=== PATIENT | male | born 1960 | race Caucasian/White ===

== ENCOUNTER 2017-09-28 12:06 | Inpatient (IN) | payer MEDICAID ==
[~2017-09-28] VITALS: Ht 172.7 cm; Wt 60.0 kg
[2017-09-28] MEDS ORDERED: SODIUM CHLORIDE 0.9% 2,000 ML IV ONE (12:45)
[2017-09-28] MEDS ORDERED: FOLI1 PO (12:45)
[2017-09-28] MEDS ORDERED: OMEP20 PO (12:45)
[2017-09-28] MEDS ORDERED: LISI-662 PO (12:45)
[2017-09-28 13:17] LABS: BASOPHILS % (AUTO) 0.1 % (0.0-2.0); EOSINOPHILS % (AUTO) 0 % (1.0-6.0); HEMATOCRIT 39.2 % (41-53); HEMOGLOBIN 13.5 g/dL (13.5-17.5); LYMPHOCYTES # (AUTO) 0.5 K/uL (1.0-4.8); MEAN CORPUSCULAR HEMOGLOBIN 32.6 pg (26.0-34.0); MEAN CORPUSCULAR HGB CONC 34.5 G/dL (31.0-37.0); MEAN CORPUSCULAR VOLUME 95 fL (80-100); MONOCYTES # (AUTO) 0.8 K/uL (0.1-1.0); MONOCYTES % (AUTO) 9.6 % (2.0-9.0); NEUTROPHILS % (AUTO) 84.3 % (40.0-70.0); PLATELET COUNT (AUTO) 124 K/uL (150-450); RED BLOOD CELL COUNT(AUTO) 4.14 MIL/uL (4.50-5.90); RED CELL DISTRIBUTION WIDTH 13.7 % (11.5-14.5)
[2017-09-28] MEDS ORDERED: MAGNESIUM SULFATE 2 GM in DEXTROSE 5%-WATER 50 ML IV ONE (13:30)
[2017-09-28 13:32] LABS: B-TYPE NATRIURETIC PEPTIDE 317 pg/mL (0-100)
[2017-09-28 13:35] LABS: ALBUMIN 3.1 g/dL (3.4-5.0); ALKALINE PHOSPHATASE 78 U/L (46-116); BILIRUBIN,TOTAL 1.3 mg/dL (0.1-1.0); CALCIUM, TOTAL 8.5 mg/dL (8.8-10.5); CHLORIDE 68 mmol/L (98-107); CREATININE 3.95 mg/dL (0.60-1.30); GLOMERULAR FILTR. RATE CALC 16 mL/min (>60); GLUCOSE,RANDOM 128 mg/dL (70-110); LIPASE 438 U/L (73-393); SODIUM SERUM 137 mmol/L (136-145); TOTAL PROTEIN, SERUM 6.7 g/dL (6.4-8.2); UREA NITROGEN, BLOOD 25 mg/dL (7-18)
[2017-09-28 14:01] LABS: POTASSIUM 2.2 mmol/L (3.5-5.1)
[2017-09-28] MEDS ORDERED: POTASSIUM CHLORIDE 20 MEQ ER TABLET PO ONE ×2 (14:15→19:30)
[2017-09-28 14:17] LABS: ANION GAP 9 mmol/L (8-16); CARBON DIOXIDE 60 mmol/L (22-29)
[2017-09-28 14:20] LABS: ALANINE AMINOTRANSFERASE 54 U/L (12-78); ASPARTATE AMINOTRANSFERASE 175 U/L (15-37)
[2017-09-28] MEDS ORDERED: ACETAMINOPHEN 325 MG TABLET PO PRN (14:30)
[2017-09-28] MEDS ORDERED: 0.9% SODIUM CHLORIDE 10 ML SYRINGE IVP PRN (14:30)
[2017-09-28] MEDS ORDERED: ONDANSETRON HCL 4 MG/2 ML VIAL IVP PRN ×3 (14:30→19:30)
[2017-09-28] MEDS ORDERED: SODIUM BICARBONATE 150 MEQ in SODIUM CHLORIDE 0.9% 1,000 ML IV ONE (14:45)
[2017-09-28 14:57] LABS: ABG A-A DIFF O2 60.5 mmHg (10-20.0); ABG BASE EXCESS 42.1 mmol/L (-2.0-3.0); ABG HCO3 64.3 mmol/L (22.0-26.0); ABG METHEMOGLOBIN 0.2 % (0.0-1.5); ABG OXYGEN CONTENT 17.5 mL/dL (15.0-23.0); ABG OXYGEN SATURATION 96.9 % (95.0-98.0); ABG OXYHEMOGLOBIN 93.8 % (94.0-100.0); ABG PCO2 63 mmHg (35-45); ABG TOTAL HEMOGLOBIN 13.2 G/dL (12.0-18.0); PO2, ARTERIAL BG 93.6 mmHg (84.0-92.0); SOURCE, BLOOD GAS ARTERIAL; TEMPERATURE, FAHRENHEIT, BG 98.6 FAHREN (96.0-98.6)
[2017-09-28 14:58] LABS: ABG PH 7.618 (7.35-7.450); O2 DEVICE,BLOOD GAS CANNULA (ROOM AIR); SITE, BLOOD GAS RT RADIAL
[2017-09-28] MEDS ORDERED: LORazepam 2 MG/ML VIAL ONE (15:22)
[2017-09-28] MEDS ORDERED: LORazepam 2 MG/ML VIAL IVP ONE (15:30)
[2017-09-28] MEDS ORDERED: SODIUM CHLORIDE 0.9% 1,000 ML IV ONE (15:30)
[2017-09-28 15:52] LABS: GLUCOSE,POINT OF CARE 148 MG/DL (70-110)
[2017-09-28 16:04] LABS: AMPHET/METH SCREEN,URINE NEGATIVE (NEGATIVE); BARBITURATE SCREEN, URINE NEGATIVE (NEGATIVE); BENZODIAZEPINES SCREEN,URINE NEGATIVE (NEGATIVE); CANNABINOID SCREEN,URINE NEGATIVE (NEGATIVE); COCAINE SCREEN,URINE NEGATIVE (NEGATIVE); METHADONE SCREEN, URINE NEGATIVE (NEGATIVE); OPIATE SCREEN,URINE NEGATIVE (NEGATIVE); PHENCYCLIDINE SCREEN,URINE NEGATIVE (NEGATIVE)
[2017-09-28 16:20] VITALS: BP 83/52
[2017-09-28 16:21] LABS: BILIRUBIN,URINE NEGATIVE (NEGATIVE); GLUCOSE, URINE (UA) NEGATIVE (NEGATIVE); KETONES,URINE NEGATIVE (NEGATIVE); LEUKOCYTE ESTERASE ,URINE NEGATIVE (NEGATIVE); NITRATE,URINE NEGATIVE (NEGATIVE); PH,URINE 8.5 (5.0-8.0); PROTEIN,URINE SEE CONFIRM (NEGATIVE); UROBILINOGEN,URINE 0.2 mg/dL (<=1.0)
[2017-09-28 16:42] LABS: APPEARANCE,URINE CLEAR (CLEAR); OCCULT BLOOD,URINE SMALL (NEGATIVE)
[2017-09-28 16:43] LABS: BACTERIA,URINE None Seen /HPF (None Seen); SULFOSALICYLIC ACID,URINE Trace (Negative); WBC,URINE None Seen /HPF (0-5)
[2017-09-28] MEDS ORDERED: MVI, ADULT NO.1 WITH VIT K 10 ML in SODIUM CHLORIDE 0.9% 1,000 ML IV ONE ×2 (17:00)
[2017-09-28] MEDS ORDERED: ALBUMIN HUMAN 25%-25GM/100ML 100 ML IV PRN (17:00)
[2017-09-28] MEDS ORDERED: NOREPINEPHRINE 4 MG/D5%-WATER 250 ML IV PRN (17:04)
[2017-09-28] MEDS ORDERED: SODIUM CHLORIDE 0.9% 250 ML IV ONE (17:16)
[2017-09-28] MEDS: LevETIRAcetam 500 MG in DEXTROSE 5%-WATER 100 ML IV SCH (17:26)
[2017-09-28] MEDS ORDERED: DEXTROSE 5%-WATER 1,000 ML IV SCH (19:00)
[2017-09-28] MEDS ORDERED: PANTOPRAZOLE SODIUM 40 MG/VIAL IVP SCH (19:30)
[2017-09-28 20:00] VITALS: BP 121/96
[2017-09-28] MEDS: ChlordiazePOXIDE HCL 10 MG CAPSULE PO SCH (20:17)
[2017-09-28] MEDS: PANTOPRAZOLE SODIUM 40 MG/VIAL IVP SCH (20:17)
[2017-09-28] MEDS: FOLIC ACID 1 MG TABLET PO SCH (20:17)
[2017-09-28] MEDS: LORazepam 2 MG/ML VIAL IVP PRN (20:17)
[2017-09-29] VITALS (7 sets, daily range): BP systolic 88–134; BP diastolic 50–92
[2017-09-29] MEDS ORDERED: HEPARIN SODIUM,PORCINE 5,000 UNITS/ML VIAL SQ SCH
[2017-09-29] MEDS: ZOLPIDEM TARTRATE 5 MG TABLET PO PRN ×2 (00:17→22:08)
[2017-09-29] MEDS: ChlordiazePOXIDE HCL 10 MG CAPSULE PO SCH ×4 (00:17→18:17)
[2017-09-29] MEDS: HEPARIN SODIUM,PORCINE 5,000 UNITS/ML VIAL SQ SCH ×3 (00:18→15:06)
[2017-09-29] MEDS: LORazepam 2 MG/ML VIAL IVP PRN ×4 (01:58→21:52)
[2017-09-29] MEDS: POTASSIUM CHLORIDE 10 MEQ in SODIUM CHLORIDE 0.9% 1,000 ML IV SCH ×4 (01:59→22:08)
[2017-09-29] MEDS ORDERED: SODIUM CHLORIDE 0.9% 1,000 ML IV SCH (02:00)
[2017-09-29 05:00] LABS: BASOPHILS % (AUTO) 0.1 % (0.0-2.0); EOSINOPHILS % (AUTO) 0 % (1.0-6.0); HEMOGLOBIN 11.4 g/dL (13.5-17.5); LYMPHOCYTES # (AUTO) 0.9 K/uL (1.0-4.8); LYMPHOCYTES % (AUTO) 10.9 % (22.0-44.0); MEAN CORPUSCULAR HEMOGLOBIN 32.9 pg (26.0-34.0); MEAN CORPUSCULAR HGB CONC 34.6 G/dL (31.0-37.0); MEAN CORPUSCULAR VOLUME 95 fL (80-100); MONOCYTES # (AUTO) 0.7 K/uL (0.1-1.0); MONOCYTES % (AUTO) 8.1 % (2.0-9.0); NEUTROPHILS # (AUTO) 6.8 K/uL (1.8-7.7); NEUTROPHILS % (AUTO) 80.9 % (40.0-70.0); PLATELET COUNT (AUTO) 81 K/uL (150-450); RED BLOOD CELL COUNT(AUTO) 3.48 MIL/uL (4.50-5.90); RED CELL DISTRIBUTION WIDTH 13.9 % (11.5-14.5)
[2017-09-29 05:10] LABS: CALCIUM, TOTAL 7.3 mg/dL (8.8-10.5); CREATININE 2.97 mg/dL (0.60-1.30)
[2017-09-29] MEDS: LevETIRAcetam 500 MG in DEXTROSE 5%-WATER 100 ML IV SCH ×2 (06:27→18:17)
[2017-09-29 07:07] LABS: POTASSIUM 2.8 mmol/L (3.5-5.1)
[2017-09-29] MEDS: POTASSIUM CHL 10 MEQ/WATER 50 ML IV SCH ×3 (08:14→09:57)
[2017-09-29] MEDS: PANTOPRAZOLE SODIUM 40 MG/VIAL IVP SCH ×2 (09:08→21:00)
[2017-09-29] MEDS: FOLIC ACID 1 MG TABLET PO SCH (09:09)
[2017-09-29 10:29] LABS: ABG A-A DIFF O2 32.4 mmHg (10-20.0); ABG BASE EXCESS 25.1 mmol/L (-2.0-3.0); ABG CARBOXYHEMOGLOBIN 1.5 % (0.0-1.5); ABG HCO3 46.1 mmol/L (22.0-26.0); ABG METHEMOGLOBIN 0.1 % (0.0-1.5); ABG OXYGEN CONTENT 15.5 mL/dL (15.0-23.0); ABG OXYHEMOGLOBIN 95.4 % (94.0-100.0); ABG PCO2 65 mmHg (35-45); ABG PH 7.492 (7.35-7.450); ABG TOTAL HEMOGLOBIN 11.5 G/dL (12.0-18.0); PO2, ARTERIAL BG 91.1 mmHg (84.0-92.0); SOURCE, BLOOD GAS ARTERIAL
[2017-09-29 10:30] LABS: O2 DEVICE,BLOOD GAS CANNULA (ROOM AIR); SITE, BLOOD GAS LFT RADIAL
[2017-09-29] MEDS ORDERED: POTASSIUM CHLORIDE 20 MEQ ER TABLET PO ONE ×3 (11:00→15:00)
[2017-09-29] MEDS ORDERED: VANCOMYCIN HCL 750 MG in DEXTROSE 5%-WATER 250 ML IV ONE (15:00)
[2017-09-29] MEDS ORDERED: SODIUM CHLORIDE 0.9% 250 ML IV ONE (18:11)
[2017-09-29 19:33] LABS: CALCIUM, TOTAL 7.7 mg/dL (8.8-10.5); CREATININE 2.25 mg/dL (0.60-1.30); POTASSIUM 3.2 mmol/L (3.5-5.1)
[2017-09-30] VITALS (7 sets, daily range): BP systolic 119–147; BP diastolic 55–83
[2017-09-30] MEDS: HEPARIN SODIUM,PORCINE 5,000 UNITS/ML VIAL SQ SCH ×3 (00:14→09:31)
[2017-09-30] MEDS: ChlordiazePOXIDE HCL 10 MG CAPSULE PO SCH ×4 (00:14→18:54)
[2017-09-30] MEDS: LORazepam 2 MG/ML VIAL IVP PRN ×5 (02:39→20:58)
[2017-09-30] MEDS: LevETIRAcetam 500 MG in DEXTROSE 5%-WATER 100 ML IV SCH ×2 (05:26→18:54)
[2017-09-30] MEDS: POTASSIUM CHLORIDE 10 MEQ in SODIUM CHLORIDE 0.9% 1,000 ML IV SCH ×2 (05:27→14:21)
[2017-09-30 06:49] LABS: BASOPHILS % (AUTO) 0.1 % (0.0-2.0); HEMATOCRIT 30.5 % (41-53); HEMOGLOBIN 10.5 g/dL (13.5-17.5); LYMPHOCYTES # (AUTO) 1.2 K/uL (1.0-4.8); LYMPHOCYTES % (AUTO) 15.6 % (22.0-44.0); MEAN CORPUSCULAR HEMOGLOBIN 33.1 pg (26.0-34.0); MEAN CORPUSCULAR HGB CONC 34.3 G/dL (31.0-37.0); MEAN CORPUSCULAR VOLUME 96 fL (80-100); MONOCYTES % (AUTO) 13.4 % (2.0-9.0); NEUTROPHILS # (AUTO) 5.3 K/uL (1.8-7.7); NEUTROPHILS % (AUTO) 69.9 % (40.0-70.0); PLATELET COUNT (AUTO) 70 K/uL (150-450); RED BLOOD CELL COUNT(AUTO) 3.17 MIL/uL (4.50-5.90); RED CELL DISTRIBUTION WIDTH 13.8 % (11.5-14.5)
[2017-09-30 07:17] LABS: CREATININE 1.82 mg/dL (0.60-1.30); POTASSIUM 3.3 mmol/L (3.5-5.1)
[2017-09-30] MEDS ORDERED: POTASSIUM CHLORIDE 20 MEQ ER TABLET PO ONE (08:30)
[2017-09-30] MEDS: FOLIC ACID 1 MG TABLET PO SCH (09:31)
[2017-09-30] MEDS: MULTIVITAMINS WITH MINERALS, THERAPEUTIC TABLET PO SCH (09:31)
[2017-09-30] MEDS: PANTOPRAZOLE SODIUM 40 MG/VIAL IVP SCH ×2 (09:31→20:10)
[2017-09-30] MEDS ORDERED: VANCOMYCIN HCL 500 MG in DEXTROSE 5%-WATER 100 ML IV SCH (12:00)
[2017-09-30 14:06] LABS: MAGNESIUM 1.8 mg/dL (1.80-2.40); POTASSIUM 3.4 mmol/L (3.5-5.1)
[2017-09-30] MEDS: METOPROLOL TARTRATE 25 MG TABLET PO SCH (20:09)
[2017-10-01] MEDS: POTASSIUM CHLORIDE 10 MEQ in SODIUM CHLORIDE 0.9% 1,000 ML IV SCH ×2 (00:04→09:09)
[2017-10-01] MEDS: LORazepam 2 MG/ML VIAL IVP PRN ×2 (01:40→17:14)
[2017-10-01 04:45] VITALS: BP 141/90
[2017-10-01] MEDS: LevETIRAcetam 500 MG in DEXTROSE 5%-WATER 100 ML IV SCH ×2 (05:29→17:19)
[2017-10-01 06:55] LABS: CALCIUM, TOTAL 8.9 mg/dL (8.8-10.5); CREATININE 1.36 mg/dL (0.60-1.30); MAGNESIUM 1.4 mg/dL (1.80-2.40); POTASSIUM 4.8 mmol/L (3.5-5.1); VANCOMYCIN,RANDOM 5.4 mcg/mL (25.0-50.0)
[2017-10-01 07:30] VITALS: BP 138/86
[2017-10-01] MEDS ORDERED: MAGNESIUM SULFATE 4 GM/WATER 100 ML IV PRN (07:45)
[2017-10-01] MEDS ORDERED: MAGNESIUM OXIDE 400 MG TABLET PO PRN (07:45)
[2017-10-01] MEDS ORDERED: MAGNESIUM SULFATE 2 GM in DEXTROSE 5%-WATER 50 ML IV PRN (07:45)
[2017-10-01] MEDS ORDERED: VANCOMYCIN HCL 750 MG in DEXTROSE 5%-WATER 250 ML IV SCH (08:00)
[2017-10-01 08:29] LABS: ALBUMIN 2.8 g/dL (3.4-5.0)
[2017-10-01] MEDS ORDERED: SODIUM CHLORIDE 0.9% 250 ML IV ONE (08:44)
[2017-10-01] MEDS: PANTOPRAZOLE SODIUM 40 MG/VIAL IVP SCH ×2 (09:07→20:40)
[2017-10-01] MEDS: MULTIVITAMINS WITH MINERALS, THERAPEUTIC TABLET PO SCH (09:07)
[2017-10-01] MEDS: FOLIC ACID 1 MG TABLET PO SCH (09:08)
[2017-10-01] MEDS: METOPROLOL TARTRATE 25 MG TABLET PO SCH ×2 (09:08→20:40)
[2017-10-01 10:55] VITALS: BP 150/78
[2017-10-01 15:05] VITALS: BP 144/81
[2017-10-01 19:22] VITALS: BP 142/76
[2017-10-01] MEDS: VANCOMYCIN HCL 500 MG in DEXTROSE 5%-WATER 100 ML IV SCH (20:51)
[2017-10-01] MEDS ORDERED: MAGNESIUM SULFATE 3 GM in DEXTROSE 5%-WATER 100 ML IV ONE (21:45)
[2017-10-01 23:26] VITALS: BP 147/89
[2017-10-02] MEDS: LORazepam 2 MG/ML VIAL IVP PRN ×2 (00:27→03:08)
[2017-10-02 04:08] VITALS: BP 145/87
[2017-10-02] MEDS: LevETIRAcetam 500 MG in DEXTROSE 5%-WATER 100 ML IV SCH ×2 (05:33→17:35)
[2017-10-02] MEDS ORDERED: SODIUM CHLORIDE 0.9% 50 ML ONE (05:39)
[2017-10-02 06:07] LABS: CALCIUM, TOTAL 9.2 mg/dL (8.8-10.5); CREATININE 1.37 mg/dL (0.60-1.30); MAGNESIUM 2.4 mg/dL (1.80-2.40); VANCOMYCIN,RANDOM 12.1 mcg/mL (25.0-50.0)
[2017-10-02 07:19] VITALS: BP 161/75
[2017-10-02] MEDS: FOLIC ACID 1 MG TABLET PO SCH (08:16)
[2017-10-02] MEDS: MULTIVITAMINS WITH MINERALS, THERAPEUTIC TABLET PO SCH (08:16)
[2017-10-02] MEDS: METOPROLOL TARTRATE 25 MG TABLET PO SCH ×2 (08:17→20:26)
[2017-10-02] MEDS: PANTOPRAZOLE SODIUM 40 MG/VIAL IVP SCH ×2 (08:26→20:26)
[2017-10-02] MEDS: VANCOMYCIN HCL 500 MG in DEXTROSE 5%-WATER 100 ML IV SCH (08:55)
[2017-10-02 11:01] VITALS: BP 124/72
[2017-10-02] MEDS ORDERED: VANCOMYCIN HCL 500 MG in DEXTROSE 5%-WATER 100 ML IV SCH (15:00)
[2017-10-02 15:14] VITALS: BP 118/72
[2017-10-02] MEDS: ChlordiazePOXIDE HCL 25 MG CAPSULE PO SCH ×2 (17:35→23:43)
[2017-10-02 19:30] VITALS: BP 130/68
[2017-10-02] MEDS: ACETAMINOPHEN 325 MG TABLET PO PRN (23:45)
[2017-10-02 23:48] VITALS: BP 122/69
[2017-10-03] VITALS (7 sets, daily range): BP systolic 95–111; BP diastolic 50–72
[2017-10-03] MEDS: LevETIRAcetam 500 MG in DEXTROSE 5%-WATER 100 ML IV SCH ×2 (06:14→17:25)
[2017-10-03] MEDS: ChlordiazePOXIDE HCL 25 MG CAPSULE PO SCH ×4 (06:14→23:49)
[2017-10-03 06:34] LABS: CALCIUM, TOTAL 8.7 mg/dL (8.8-10.5); CREATININE 1.61 mg/dL (0.60-1.30); POTASSIUM 4.4 mmol/L (3.5-5.1)
[2017-10-03 08:15] LABS: MAGNESIUM 1.5 mg/dL (1.80-2.40)
[2017-10-03] MEDS: MULTIVITAMINS WITH MINERALS, THERAPEUTIC TABLET PO SCH (08:16)
[2017-10-03] MEDS: METOPROLOL TARTRATE 25 MG TABLET PO SCH ×2 (08:16→20:25)
[2017-10-03] MEDS: FOLIC ACID 1 MG TABLET PO SCH (08:16)
[2017-10-03] MEDS: PANTOPRAZOLE SODIUM 40 MG/VIAL IVP SCH ×2 (08:16→20:24)
[2017-10-03] MEDS ORDERED: MAGNESIUM SULFATE 1 GM in DEXTROSE 5%-WATER 50 ML IV ONE (09:45)
[2017-10-03] MEDS: ACETAMINOPHEN 325 MG TABLET PO PRN (20:24)
[2017-10-04 04:28] VITALS: BP 107/56
[2017-10-04] MEDS ORDERED: SODIUM CHLORIDE 0.9% 250 ML IV ONE (06:14)
[2017-10-04] MEDS: ChlordiazePOXIDE HCL 25 MG CAPSULE PO SCH ×2 (06:18→12:42)
[2017-10-04] MEDS: LevETIRAcetam 500 MG in DEXTROSE 5%-WATER 100 ML IV SCH (06:18)
[2017-10-04 07:23] LABS: CALCIUM, TOTAL 8.4 mg/dL (8.8-10.5); CREATININE 1.55 mg/dL (0.60-1.30); MAGNESIUM 1.8 mg/dL (1.80-2.40); POTASSIUM 4.5 mmol/L (3.5-5.1)
[2017-10-04 07:50] VITALS: BP 95/55
[2017-10-04] MEDS: FOLIC ACID 1 MG TABLET PO SCH (08:43)
[2017-10-04] MEDS: MULTIVITAMINS WITH MINERALS, THERAPEUTIC TABLET PO SCH (08:43)
[2017-10-04] MEDS: PANTOPRAZOLE SODIUM 40 MG/VIAL IVP SCH (08:44)
[2017-10-04] MEDS: METOPROLOL TARTRATE 25 MG TABLET PO SCH (09:00)
[2017-10-04 17:10] VITALS: BP 108/72
== END 2017-10-04 17:45 | disposition home or self-care (01) | DRG 812 ==
LOC: EMS 12:06 → ICU 14:49 → 5S 09-29 17:15 → 6N 10-03 18:10
PROVIDERS: ADMIT Internal Medicine; ATTEND Internal Medicine
DX: T47.1X1A Poisoning by other antacids and anti-gastric-secretion drugs, accidental (unintentional), initial encounter (principal); N17.0 Acute kidney failure with tubular necrosis; G93.41 Metabolic encephalopathy; E87.4 Mixed disorder of acid-base balance; I95.9 Hypotension, unspecified; D69.6 Thrombocytopenia, unspecified; E83.42 Hypomagnesemia; E86.9 Volume depletion, unspecified; B95.8 Unspecified staphylococcus as the cause of diseases classified elsewhere; E87.6 Hypokalemia; F10.229 Alcohol dependence with intoxication, unspecified; F17.210 Nicotine dependence, cigarettes, uncomplicated; I10 Essential (primary) hypertension; F10.239 Alcohol dependence with withdrawal, unspecified; D64.9 Anemia, unspecified; K21.9 Gastro-esophageal reflux disease without esophagitis; Z79.899 Other long term (current) drug therapy; Y90.9 Presence of alcohol in blood, level not specified; Y92.89 Other specified places as the place of occurrence of the external cause
CPT/HCPCS: 51702; 70450; 72125; 76770; 80320; 82693; 82805; 82962; 83605; 83735; 84132; 84145; 86160; 87040; 87081; 87205; 93005; 93306; 96361; 96365; 96367; 96375; 97110; 97116; 97162; 97166; 97530; 99291; C9113; G0480; J0712; J1644; J2060; J3370; J3475; J3480; J3490; J7030; J7050; J7060

== ENCOUNTER 2018-12-05 09:06 | Emergency (ER) | payer MEDICAID ==
[~2018-12-05] VITALS: Ht 185.4 cm; Wt 65.9 kg
[~2018-12-05 09:06] MED LIST: FOLI1 PO; LISI-662 PO; OMEP20 PO
[2018-12-05] MEDS ORDERED: VANCOMYCIN HCL 1 GM/D5% WATER 200 ML IV ONE (11:45)
[2018-12-05] MEDS ORDERED: HYDROGEN PEROXIDE 118 ML SOLUTION TP ONE (11:45)
[2018-12-05 12:01] LABS: AMPHET/METH SCREEN,URINE NEGATIVE (NEGATIVE); BARBITURATE SCREEN, URINE NEGATIVE (NEGATIVE); BENZODIAZEPINES SCREEN,URINE NEGATIVE (NEGATIVE); CANNABINOID SCREEN,URINE POSITIVE (NEGATIVE); COCAINE SCREEN,URINE NEGATIVE (NEGATIVE); METHADONE SCREEN, URINE NEGATIVE (NEGATIVE); OPIATE SCREEN,URINE NEGATIVE (NEGATIVE); PHENCYCLIDINE SCREEN,URINE NEGATIVE (NEGATIVE)
[2018-12-05 12:07] LABS: APPEARANCE,URINE CLEAR (CLEAR); BILIRUBIN,URINE NEGATIVE (NEGATIVE); GLUCOSE, URINE (UA) NEGATIVE (NEGATIVE); KETONES,URINE 40 mg/dL (NEGATIVE); LEUKOCYTE ESTERASE ,URINE NEGATIVE (NEGATIVE); NITRATE,URINE NEGATIVE (NEGATIVE); OCCULT BLOOD,URINE TRACE (NEGATIVE); PH,URINE 8.5 (5.0-8.0); PROTEIN,URINE SEE CONFIRM (NEGATIVE)
[2018-12-05 12:09] LABS: ANION GAP 9 mmol/L (8-16); CALCIUM, TOTAL 8.9 mg/dL (8.8-10.5); CARBON DIOXIDE 34 mmol/L (22-29); CHLORIDE 90 mmol/L (98-107); CREATININE 1.03 mg/dL (0.60-1.30); GLOMERULAR FILTR. RATE CALC > 60 mL/min (>60); GLUCOSE,RANDOM 104 mg/dL (70-110); POTASSIUM 3.2 mmol/L (3.5-5.1); SODIUM SERUM 133 mmol/L (136-145); UREA NITROGEN, BLOOD 9 mg/dL (7-18)
[2018-12-05 12:09] LABS: RBC,URINE 0-2 /HPF (0-2); SULFOSALICYLIC ACID,URINE Trace (Negative)
[2018-12-05 12:10] LABS: BACTERIA,URINE None Seen /HPF (None Seen); WBC,URINE None Seen /HPF (0-5)
[2018-12-05 12:15] LABS: ALANINE AMINOTRANSFERASE 29 U/L (12-78); ALKALINE PHOSPHATASE 77 U/L (46-116); ASPARTATE AMINOTRANSFERASE 49 U/L (15-37); BILIRUBIN,TOTAL 1.2 mg/dL (0.1-1.0); TOTAL PROTEIN, SERUM 6.9 g/dL (6.4-8.2)
[2018-12-05 12:16] LABS: BASOPHILS % (AUTO) 0.2 % (0.0-2.0); EOSINOPHILS % (AUTO) 0 % (1.0-6.0); HEMATOCRIT 43.3 % (41-53); HEMOGLOBIN 14.3 g/dL (13.5-17.5); LYMPHOCYTES # (AUTO) 0.3 K/uL (1.0-4.8); LYMPHOCYTES % (AUTO) 4.7 % (22.0-44.0); MEAN CORPUSCULAR HEMOGLOBIN 32.1 pg (26.0-34.0); MEAN CORPUSCULAR HGB CONC 33.2 G/dL (31.0-37.0); MEAN CORPUSCULAR VOLUME 97 fL (80-100); MONOCYTES # (AUTO) 0.5 K/uL (0.1-1.0); MONOCYTES % (AUTO) 7.2 % (2.0-9.0); NEUTROPHILS # (AUTO) 6.1 K/uL (1.8-7.7); PLATELET COUNT (AUTO) 132 K/uL (150-450); RED BLOOD CELL COUNT(AUTO) 4.47 MIL/uL (4.50-5.90); RED CELL DISTRIBUTION WIDTH 14.2 % (11.5-14.5)
[2018-12-05 12:17] LABS: NEUTROPHILS % (AUTO) 87.9 % (40.0-70.0)
[2018-12-05 12:47] LABS: LACTIC ACID 2.1 mmol/L (0.4-2.0)
[2018-12-05] MEDS ORDERED: SODIUM CHLORIDE 0.9% 2,000 ML IV ONE (13:13)
[2018-12-05 13:23] VITALS: BP 147/90
[2018-12-05] MEDS ORDERED: ACETAMINOPHEN 500 MG TABLET PO ONE (13:30)
[2018-12-05] MEDS ORDERED: POTASSIUM CHLORIDE 10% 40 MEQ/30 ML LIQUID UDCUP PO ONE (13:30)
[2018-12-05 13:55] LABS: PROTHROMBIN TIME 10.1 SEC (9.4-11.6)
[2018-12-05] MEDS ORDERED: PERTUSS(ACELL),DIPH,TET VAC/PF 0.5 ML VIAL IM ONE (14:15)
== END 2018-12-05 14:40 | disposition short-term general hospital (02) ==
LOC: EMS 09:08
DX: S12.400A Unspecified displaced fracture of fifth cervical vertebra, initial encounter for closed fracture (principal); S01.01XA Laceration without foreign body of scalp, initial encounter; A41.9 Sepsis, unspecified organism; E44.0 Moderate protein-calorie malnutrition; E87.6 Hypokalemia; B87.9 Myiasis, unspecified; L03.221 Cellulitis of neck; I10 Essential (primary) hypertension; F17.210 Nicotine dependence, cigarettes, uncomplicated; Z68.1 Body mass index [BMI] 19.9 or less, adult; Z79.899 Other long term (current) drug therapy; W01.0XXA Fall on same level from slipping, tripping and stumbling without subsequent striking against object, initial encounter; Y93.01 Activity, walking, marching and hiking; Y92.89 Other specified places as the place of occurrence of the external cause; Y99.8 Other external cause status
CPT/HCPCS: 36415; 70450; 71045; 72125; 80053; 80307; 81001; 83605; 83735; 84484; 85025; 85610; 87040; 90471; 90715; 93005; 96365; 96366; 99291; G0480; J3370; J7030

== ENCOUNTER 2019-05-15 20:51 | Inpatient (IN) | payer MEDICAID ==
[~2019-05-15] VITALS: Ht 180.3 cm; Wt 60.7 kg
[~2019-05-15 20:51] MED LIST changes: +ASPI81TA39 PO; -LISI-662 PO; +PANT40TA25 PO
[2019-05-16 00:12] LABS: BASOPHILS % (AUTO) 0.5 % (0.0-2.0); EOSINOPHILS % (AUTO) 1.3 % (1.0-6.0); HEMATOCRIT 37.7 % (41-53); HEMOGLOBIN 12.3 g/dL (13.5-17.5); LYMPHOCYTES # (AUTO) 0.8 K/uL (1.0-4.8); MEAN CORPUSCULAR HGB CONC 32.5 G/dL (31.0-37.0); MEAN CORPUSCULAR VOLUME 86 fL (80-100); MONOCYTES # (AUTO) 0.6 K/uL (0.1-1.0); MONOCYTES % (AUTO) 9.1 % (2.0-9.0); NEUTROPHILS # (AUTO) 5.5 K/uL (1.8-7.7); NEUTROPHILS % (AUTO) 78.1 % (40.0-70.0); PLATELET COUNT (AUTO) 213 K/uL (150-450); RED BLOOD CELL COUNT(AUTO) 4.39 MIL/uL (4.50-5.90); RED CELL DISTRIBUTION WIDTH 17.6 % (11.5-14.5)
[2019-05-16 00:28] LABS: CALCIUM, TOTAL 8.2 mg/dL (8.8-10.5); CREATININE 1.81 mg/dL (0.60-1.30); MAGNESIUM 1.2 mg/dL (1.80-2.40)
[2019-05-16] MEDS ORDERED: POTASSIUM CHLORIDE 20 MEQ ER TABLET PO ONE (00:45)
[2019-05-16] MEDS ORDERED: MAGNESIUM SULFATE 2 GM/WATER 50 ML IV ONE (00:45)
[2019-05-16] MEDS ORDERED: 0.9% SODIUM CHLORIDE 10 ML SYRINGE IVP PRN ×2 (01:00→07:45)
[2019-05-16] MEDS ORDERED: ONDANSETRON HCL 4 MG/2 ML VIAL IVP PRN (01:00)
[2019-05-16] MEDS: POTASSIUM CHL 10 MEQ/WATER 50 ML IV SCH ×3 (01:18→01:31)
[2019-05-16 04:18] VITALS: BP 102/66
[2019-05-16] MEDS ORDERED: MAGNESIUM OXIDE 400 MG TABLET PO PRN (07:45)
[2019-05-16] MEDS ORDERED: ZOLPIDEM TARTRATE 5 MG TABLET PO PRN (07:45)
[2019-05-16] MEDS ORDERED: MAGNESIUM SULFATE 4 GM/WATER 100 ML IV PRN (07:45)
[2019-05-16] MEDS ORDERED: MAGNESIUM SULFATE 2 GM/WATER 50 ML IV PRN (07:45)
[2019-05-16] MEDS ORDERED: POTASSIUM CHLORIDE 20 MEQ ER TABLET PO PRN (07:45)
[2019-05-16 08:57] VITALS: BP 128/78
[2019-05-16] MEDS: MAGNESIUM SULFATE 2 GM, MVI, ADULT NO.1 WITH VIT K 10 ML, THIAMINE HCL 100 MG, FOLIC AC... IV SCH ×5 (09:18)
[2019-05-16] MEDS: PANTOPRAZOLE SODIUM 40 MG DR TABLET PO SCH (09:18)
[2019-05-16 09:54] LABS: ALBUMIN 2.6 g/dL (3.4-5.0)
[2019-05-16 09:56] LABS: POTASSIUM 2.3 mmol/L (3.5-5.1)
[2019-05-16] MEDS: POTASSIUM CHL 10 MEQ/WATER 50 ML IV PRN ×4 (10:48→17:33)
[2019-05-16 11:53] VITALS: BP 131/60
[2019-05-16] MEDS: SODIUM CHLORIDE 0.9% 1,000 ML IV SCH (13:02)
[2019-05-16 13:20] LABS: CALCIUM, TOTAL 7.8 mg/dL (8.8-10.5); CREATININE 1.39 mg/dL (0.60-1.30); MAGNESIUM 1.8 mg/dL (1.80-2.40); PHOSPHORUS 2.4 mg/dL (2.5-4.9)
[2019-05-16 16:20] VITALS: BP 112/85
[2019-05-16 16:37] LABS: CREATININE,URINE RANDOM 13.9 mg/dL (30.0-125.0)
[2019-05-16 20:28] VITALS: BP 117/52
[2019-05-16 22:39] LABS: ABG A-A DIFF O2 13.5 mmHg (10-20.0); ABG BASE EXCESS 12.1 mmol/L (-2.0-3.0); ABG CARBOXYHEMOGLOBIN 1.3 % (0.0-1.5); ABG HCO3 34.4 mmol/L (22.0-26.0); ABG METHEMOGLOBIN 0.3 % (0.0-1.5); ABG OXYGEN CONTENT 14.8 mL/dL (15.0-23.0); ABG OXYGEN SATURATION 94.2 % (95.0-98.0); ABG OXYHEMOGLOBIN 92.7 % (94.0-100.0); ABG PCO2 50 mmHg (35-45); ABG PH 7.473 (7.35-7.450); ABG TOTAL HEMOGLOBIN 11.3 G/dL (12.0-18.0); PO2, ARTERIAL BG 76.2 mmHg (79.0-87.0); SOURCE, BLOOD GAS ARTERIAL; TEMPERATURE, FAHRENHEIT, BG 99.4 FAHREN (96.0-98.6)
[2019-05-16 22:40] LABS: SITE, BLOOD GAS LFT RADIAL
[2019-05-16 22:41] LABS: O2 DEVICE,BLOOD GAS ROOM AIR (ROOM AIR)
[2019-05-17 00:19] VITALS: BP 124/86
[2019-05-17] MEDS: POTASSIUM CHL 10 MEQ/WATER 50 ML IV PRN ×4 (01:56→05:49)
[2019-05-17 04:34] VITALS: BP 123/57
[2019-05-17] MEDS: MAGNESIUM SULFATE 2 GM, MVI, ADULT NO.1 WITH VIT K 10 ML, THIAMINE HCL 100 MG, FOLIC AC... IV SCH ×5 (05:49)
[2019-05-17 07:32] VITALS: BP 127/50
[2019-05-17 08:02] LABS: BASOPHILS % (AUTO) 0.8 % (0.0-2.0); EOSINOPHILS % (AUTO) 9.2 % (1.0-6.0); HEMATOCRIT 34.8 % (41-53); HEMOGLOBIN 11.2 g/dL (13.5-17.5); LYMPHOCYTES # (AUTO) 1.2 K/uL (1.0-4.8); LYMPHOCYTES % (AUTO) 19.2 % (22.0-44.0); MEAN CORPUSCULAR HEMOGLOBIN 28.3 pg (26.0-34.0); MEAN CORPUSCULAR HGB CONC 32.2 G/dL (31.0-37.0); MEAN CORPUSCULAR VOLUME 88 fL (80-100); MONOCYTES # (AUTO) 0.8 K/uL (0.1-1.0); MONOCYTES % (AUTO) 13.9 % (2.0-9.0); NEUTROPHILS # (AUTO) 3.4 K/uL (1.8-7.7); NEUTROPHILS % (AUTO) 56.9 % (40.0-70.0); PLATELET COUNT (AUTO) 172 K/uL (150-450); RED BLOOD CELL COUNT(AUTO) 3.97 MIL/uL (4.50-5.90); RED CELL DISTRIBUTION WIDTH 18.1 % (11.5-14.5)
[2019-05-17 08:24] LABS: ANION GAP 2 mmol/L (8-16); CALCIUM, TOTAL 8.2 mg/dL (8.8-10.5); CARBON DIOXIDE 31 mmol/L (22-29); CHLORIDE 99 mmol/L (98-107); CREATININE 1.09 mg/dL (0.60-1.30); GLOMERULAR FILTR. RATE CALC > 60 mL/min (>60); GLUCOSE,RANDOM 81 mg/dL (70-110); POTASSIUM 3.3 mmol/L (3.5-5.1); SODIUM SERUM 132 mmol/L (136-145); THYROID STIMULATING HORMONE 1.24 uIU/mL (0.36-3.74); UREA NITROGEN, BLOOD 4 mg/dL (7-18)
[2019-05-17] MEDS: PANTOPRAZOLE SODIUM 40 MG DR TABLET PO SCH (09:36)
[2019-05-17 12:05] VITALS: BP 144/73
[2019-05-17] MEDS: MAG HYDROX/AL HYDROX/SIMETH 30 ML SUSP UDCUP PO PRN (17:03)
[2019-05-17 17:08] VITALS: BP 140/73
[2019-05-17] MEDS: SODIUM CHLORIDE 0.9% 1,000 ML IV SCH (20:59)
[2019-05-17 21:14] VITALS: BP_SYST 156; BP_SYST 97; BP_DIAS 52; BP_DIAS 81
[2019-05-18 00:56] VITALS: BP 124/69
[2019-05-18] MEDS: MAGNESIUM SULFATE 2 GM, MVI, ADULT NO.1 WITH VIT K 10 ML, THIAMINE HCL 100 MG, FOLIC AC... IV SCH ×10 (01:03→21:34)
[2019-05-18 04:25] VITALS: BP 130/74
[2019-05-18 06:44] LABS: ANION GAP 7 mmol/L (8-16); CALCIUM, TOTAL 8.2 mg/dL (8.8-10.5); CARBON DIOXIDE 23 mmol/L (22-29); CHLORIDE 103 mmol/L (98-107); CREATININE 0.98 mg/dL (0.60-1.30); GLOMERULAR FILTR. RATE CALC > 60 mL/min (>60); GLUCOSE,RANDOM 79 mg/dL (70-110); PHOSPHORUS 2.5 mg/dL (2.5-4.9); POTASSIUM 4.3 mmol/L (3.5-5.1); SODIUM SERUM 133 mmol/L (136-145); UREA NITROGEN, BLOOD 9 mg/dL (7-18)
[2019-05-18 08:34] VITALS: BP 144/72
[2019-05-18] MEDS: PANTOPRAZOLE SODIUM 40 MG DR TABLET PO SCH (09:02)
[2019-05-18 11:14] VITALS: BP 120/66
[2019-05-18] MEDS: MAG HYDROX/AL HYDROX/SIMETH 30 ML SUSP UDCUP PO PRN ×2 (15:01→21:29)
[2019-05-18 15:41] VITALS: BP 143/71
[2019-05-18 21:09] VITALS: BP 145/85
[2019-05-19 00:25] VITALS: BP 154/92
[2019-05-19] MEDS: SODIUM CHLORIDE 0.9% 1,000 ML IV SCH ×2 (00:41→13:03)
[2019-05-19] MEDS: MAG HYDROX/AL HYDROX/SIMETH 30 ML SUSP UDCUP PO PRN ×4 (03:15→23:35)
[2019-05-19 04:12] VITALS: BP 132/55
[2019-05-19 07:15] LABS: ANION GAP 5 mmol/L (8-16); CALCIUM, TOTAL 8.1 mg/dL (8.8-10.5); CARBON DIOXIDE 25 mmol/L (22-29); CHLORIDE 96 mmol/L (98-107); CREATININE 0.99 mg/dL (0.60-1.30); GLOMERULAR FILTR. RATE CALC > 60 mL/min (>60); GLUCOSE,RANDOM 80 mg/dL (70-110); PHOSPHORUS 1.7 mg/dL (2.5-4.9); POTASSIUM 5.5 mmol/L (3.5-5.1); SODIUM SERUM 126 mmol/L (136-145); UREA NITROGEN, BLOOD 9 mg/dL (7-18)
[2019-05-19 07:45] VITALS: BP 141/68
[2019-05-19] MEDS ORDERED: SODIUM PHOS,M-BASIC-D-BASIC 30 MMOL in DEXTROSE 5%-WATER 250 ML IV ONE (09:00)
[2019-05-19] MEDS ORDERED: MAGNESIUM SULFATE 1 GM in DEXTROSE 5%-WATER 50 ML IV ONE (09:00)
[2019-05-19] MEDS: PANTOPRAZOLE SODIUM 40 MG DR TABLET PO SCH (09:29)
[2019-05-19] MEDS: ONDANSETRON HCL 4 MG/2 ML VIAL IVP PRN ×2 (09:29→15:51)
[2019-05-19] MEDS: IBUPROFEN 400 MG TABLET PO PRN ×2 (09:29→20:47)
[2019-05-19 11:02] VITALS: BP 111/48
[2019-05-19 13:25] LABS: POTASSIUM 4.8 mmol/L (3.5-5.1)
[2019-05-19 15:12] LABS: APPEARANCE,URINE CLEAR (CLEAR); GLUCOSE, URINE (UA) 250 mg/dL (NEGATIVE); KETONES,URINE TRACE mg/dL (NEGATIVE); LEUKOCYTE ESTERASE ,URINE NEGATIVE (NEGATIVE); NITRATE,URINE NEGATIVE (NEGATIVE); OCCULT BLOOD,URINE NEGATIVE (NEGATIVE); PH,URINE 7.5 (5.0-8.0); PROTEIN,URINE POS 1+ (NEGATIVE); UROBILINOGEN,URINE 0.2 mg/dL (<=1.0)
[2019-05-19 15:15] LABS: CREATININE,URINE RANDOM 229.8 mg/dL (30.0-125.0); SODIUM,URINE RANDOM 148 mmol/l (20-110)
[2019-05-19 15:19] LABS: BILIRUBIN,URINE PRELIM. POSITIVE (NEGATIVE)
[2019-05-19 15:42] VITALS: BP 115/60
[2019-05-19 16:00] LABS: OSMOLALITY,URINE 652 mOS/kg (50-1200)
[2019-05-19] MEDS ORDERED: MORPHINE SULFATE 2 MG/ML SYRINGE IVP PRN (16:00)
[2019-05-19 16:04] LABS: BACTERIA,URINE Rare /HPF (None Seen); MUCUS,URINE Few LPF (None Seen); RBC,URINE None Seen /HPF (0-2); SQUAMOUS EPITHELIAL CELL,UR Rare /LPF (None Seen); WBC,URINE 0-2 /HPF (0-5)
[2019-05-19] MEDS: MAGNESIUM SULFATE 2 GM, MVI, ADULT NO.1 WITH VIT K 10 ML, THIAMINE HCL 100 MG, FOLIC AC... IV SCH ×5 (17:39)
[2019-05-19 18:26] LABS: ANION GAP 9 mmol/L (8-16); CALCIUM, TOTAL 8.7 mg/dL (8.8-10.5); CARBON DIOXIDE 28 mmol/L (22-29); CHLORIDE 92 mmol/L (98-107); GLOMERULAR FILTR. RATE CALC > 60 mL/min (>60); GLUCOSE,RANDOM 104 mg/dL (70-110); POTASSIUM 4.6 mmol/L (3.5-5.1); SODIUM SERUM 129 mmol/L (136-145); UREA NITROGEN, BLOOD 12 mg/dL (7-18)
[2019-05-19 18:47] LABS: OSMOLALITY 268 mOS/kg (270-310)
[2019-05-19 20:35] VITALS: BP 113/50
[2019-05-20] VITALS (7 sets, daily range): BP systolic 101–114; BP diastolic 54–67
[2019-05-20] MEDS: PIPERACILLIN/TAZO 3.375 GM/D5W 50 ML IV SCH ×4 (04:07→21:59)
[2019-05-20] MEDS: MAG HYDROX/AL HYDROX/SIMETH 30 ML SUSP UDCUP PO PRN ×3 (05:26→18:06)
[2019-05-20 06:36] LABS: BASOPHILS % (AUTO) 0.6 % (0.0-2.0); EOSINOPHILS % (AUTO) 0.8 % (1.0-6.0); HEMATOCRIT 31.7 % (41-53); HEMOGLOBIN 10.5 g/dL (13.5-17.5); LYMPHOCYTES # (AUTO) 0.5 K/uL (1.0-4.8); LYMPHOCYTES % (AUTO) 7.5 % (22.0-44.0); MEAN CORPUSCULAR HEMOGLOBIN 28.9 pg (26.0-34.0); MEAN CORPUSCULAR HGB CONC 33.3 G/dL (31.0-37.0); MEAN CORPUSCULAR VOLUME 87 fL (80-100); MONOCYTES # (AUTO) 0.7 K/uL (0.1-1.0); MONOCYTES % (AUTO) 12.1 % (2.0-9.0); NEUTROPHILS # (AUTO) 4.8 K/uL (1.8-7.7); PLATELET COUNT (AUTO) 144 K/uL (150-450); RED BLOOD CELL COUNT(AUTO) 3.64 MIL/uL (4.50-5.90); RED CELL DISTRIBUTION WIDTH 18.2 % (11.5-14.5)
[2019-05-20 07:09] LABS: ANION GAP 8 mmol/L (8-16); CALCIUM, TOTAL 7.9 mg/dL (8.8-10.5); CARBON DIOXIDE 26 mmol/L (22-29); CHLORIDE 95 mmol/L (98-107); CREATININE 1.15 mg/dL (0.60-1.30); GLOMERULAR FILTR. RATE CALC > 60 mL/min (>60); GLUCOSE,RANDOM 103 mg/dL (70-110); POTASSIUM 4.5 mmol/L (3.5-5.1); SODIUM SERUM 129 mmol/L (136-145); UREA NITROGEN, BLOOD 13 mg/dL (7-18)
[2019-05-20] MEDS: PANTOPRAZOLE SODIUM 40 MG DR TABLET PO SCH (08:10)
[2019-05-20] MEDS: SODIUM CHLORIDE 1 GM TABLET PO SCH ×2 (11:53→20:05)
[2019-05-20] MEDS: MAGNESIUM SULFATE 2 GM, MVI, ADULT NO.1 WITH VIT K 10 ML, THIAMINE HCL 100 MG, FOLIC AC... IV SCH ×5 (14:07)
[2019-05-20] MEDS ORDERED: IBUPROFEN 400 MG TABLET PO PRN (17:00)
[2019-05-21] MEDS: PIPERACILLIN/TAZO 3.375 GM/D5W 50 ML IV SCH ×4 (03:40→22:12)
[2019-05-21 04:41] VITALS: BP 116/58
[2019-05-21 06:46] LABS: BASOPHILS % (AUTO) 0.9 % (0.0-2.0); EOSINOPHILS % (AUTO) 8.2 % (1.0-6.0); HEMATOCRIT 32.4 % (41-53); HEMOGLOBIN 10.5 g/dL (13.5-17.5); LYMPHOCYTES # (AUTO) 0.9 K/uL (1.0-4.8); LYMPHOCYTES % (AUTO) 18.7 % (22.0-44.0); MEAN CORPUSCULAR HEMOGLOBIN 28.6 pg (26.0-34.0); MEAN CORPUSCULAR HGB CONC 32.4 G/dL (31.0-37.0); MEAN CORPUSCULAR VOLUME 88 fL (80-100); MONOCYTES # (AUTO) 1.4 K/uL (0.1-1.0); MONOCYTES % (AUTO) 29.6 % (2.0-9.0); NEUTROPHILS % (AUTO) 42.6 % (40.0-70.0); PLATELET COUNT (AUTO) 159 K/uL (150-450); RED BLOOD CELL COUNT(AUTO) 3.67 MIL/uL (4.50-5.90); RED CELL DISTRIBUTION WIDTH 18.5 % (11.5-14.5)
[2019-05-21 07:41] LABS: CALCIUM, TOTAL 7.9 mg/dL (8.8-10.5); CREATININE 1.23 mg/dL (0.60-1.30); MAGNESIUM 1.9 mg/dL (1.80-2.40); PHOSPHORUS 2.8 mg/dL (2.5-4.9); POTASSIUM 5.2 mmol/L (3.5-5.1)
[2019-05-21 07:45] VITALS: BP 111/60
[2019-05-21] MEDS: PANTOPRAZOLE SODIUM 40 MG DR TABLET PO SCH ×2 (08:37→21:21)
[2019-05-21] MEDS: SODIUM CHLORIDE 1 GM TABLET PO SCH ×2 (08:37→21:24)
[2019-05-21 11:50] VITALS: BP 120/67
[2019-05-21 15:21] VITALS: BP 133/73
[2019-05-21] MEDS: MAG HYDROX/AL HYDROX/SIMETH 30 ML SUSP UDCUP PO PRN (18:47)
[2019-05-21 20:09] VITALS: BP 140/85
[2019-05-21] MEDS: MetroNIDAZOLE 500 MG TABLET PO SCH (21:21)
[2019-05-21 23:45] LABS: C.DIFF GDH ANTIGEN, Stool Negative (Negative); C.DIFF TOXINS A&B, Stool Negative (Negative)
[2019-05-22 00:06] VITALS: BP 127/71
[2019-05-22] MEDS: PIPERACILLIN/TAZO 3.375 GM/D5W 50 ML IV SCH ×4 (04:01→21:01)
[2019-05-22 04:34] VITALS: BP 126/71
[2019-05-22 06:24] LABS: BASOPHILS % (AUTO) 0.6 % (0.0-2.0); HEMATOCRIT 34.5 % (41-53); HEMOGLOBIN 11.1 g/dL (13.5-17.5); LYMPHOCYTES # (AUTO) 1.2 K/uL (1.0-4.8); LYMPHOCYTES % (AUTO) 24.4 % (22.0-44.0); MEAN CORPUSCULAR HGB CONC 32.1 G/dL (31.0-37.0); MEAN CORPUSCULAR VOLUME 87 fL (80-100); MONOCYTES # (AUTO) 0.9 K/uL (0.1-1.0); MONOCYTES % (AUTO) 19.4 % (2.0-9.0); NEUTROPHILS # (AUTO) 2.3 K/uL (1.8-7.7); NEUTROPHILS % (AUTO) 46.6 % (40.0-70.0); PLATELET COUNT (AUTO) 244 K/uL (150-450); RED BLOOD CELL COUNT(AUTO) 3.97 MIL/uL (4.50-5.90); RED CELL DISTRIBUTION WIDTH 18.3 % (11.5-14.5)
[2019-05-22 06:40] LABS: ANION GAP 7 mmol/L (8-16); CALCIUM, TOTAL 8.7 mg/dL (8.8-10.5); CARBON DIOXIDE 25 mmol/L (22-29); CHLORIDE 100 mmol/L (98-107); CREATININE 1.15 mg/dL (0.60-1.30); GLOMERULAR FILTR. RATE CALC > 60 mL/min (>60); GLUCOSE,RANDOM 106 mg/dL (70-110); PHOSPHORUS 3.1 mg/dL (2.5-4.9); POTASSIUM 5.2 mmol/L (3.5-5.1); SODIUM SERUM 132 mmol/L (136-145); UREA NITROGEN, BLOOD 11 mg/dL (7-18)
[2019-05-22 07:34] VITALS: BP 110/78
[2019-05-22] MEDS: SODIUM CHLORIDE 1 GM TABLET PO SCH ×2 (08:37→20:57)
[2019-05-22] MEDS: MetroNIDAZOLE 500 MG TABLET PO SCH ×3 (08:37→20:57)
[2019-05-22] MEDS: PANTOPRAZOLE SODIUM 40 MG DR TABLET PO SCH ×2 (08:37→20:57)
[2019-05-22 11:21] VITALS: BP 135/76
[2019-05-22] MEDS: MAG HYDROX/AL HYDROX/SIMETH 30 ML SUSP UDCUP PO PRN ×2 (13:01→20:57)
[2019-05-22 16:31] VITALS: BP 111/64
[2019-05-22 20:06] VITALS: BP 141/76
[2019-05-23 00:01] VITALS: BP 139/75
[2019-05-23] MEDS: PIPERACILLIN/TAZO 3.375 GM/D5W 50 ML IV SCH ×3 (03:05→16:00)
[2019-05-23 04:10] VITALS: BP 141/76
[2019-05-23 07:09] LABS: ALBUMIN 2.6 g/dL (3.4-5.0); MAGNESIUM 1.8 mg/dL (1.80-2.40)
[2019-05-23 07:54] VITALS: BP 133/76
[2019-05-23] MEDS: SODIUM CHLORIDE 1 GM TABLET PO SCH (08:11)
[2019-05-23] MEDS: PANTOPRAZOLE SODIUM 40 MG DR TABLET PO SCH (08:11)
[2019-05-23] MEDS: MetroNIDAZOLE 500 MG TABLET PO SCH ×2 (08:11→16:00)
[2019-05-23 11:33] VITALS: BP 136/73
[2019-05-23 15:30] VITALS: BP 127/83
[2019-05-23] MEDS ORDERED: METR500 PO ×2 (17:35)
[2019-05-23] MEDS ORDERED: FOLI1 PO (17:35)
[2019-05-23] MEDS ORDERED: AMOX1TAB16 PO (17:35)
[2019-05-23] MEDS ORDERED: NACL1 PO (17:35)
[2019-05-23] MEDS ORDERED: OMEP20 PO (17:35)
[2019-05-23] MEDS ORDERED: MAAL30 PO (17:35)
[2019-05-23] MEDS ORDERED: ASPI81TA39 PO (17:35)
== END 2019-05-23 19:00 | disposition home or self-care (01) | DRG 469 ==
LOC: EMS 20:54 → 5N 05-16 02:43
PROVIDERS: ADMIT Internal Medicine; ATTEND Internal Medicine
DX: N17.9 Acute kidney failure, unspecified (principal); D69.6 Thrombocytopenia, unspecified; E22.2 Syndrome of inappropriate secretion of antidiuretic hormone; E44.0 Moderate protein-calorie malnutrition; E83.42 Hypomagnesemia; E83.39 Other disorders of phosphorus metabolism; E87.5 Hyperkalemia; E87.6 Hypokalemia; I10 Essential (primary) hypertension; K52.9 Noninfective gastroenteritis and colitis, unspecified; D64.9 Anemia, unspecified; F10.10 Alcohol abuse, uncomplicated; Y90.9 Presence of alcohol in blood, level not specified; F17.210 Nicotine dependence, cigarettes, uncomplicated; I25.10 Atherosclerotic heart disease of native coronary artery without angina pectoris; Z88.8 Allergy status to other drugs, medicaments and biological substances; Z59.0 Homelessness; Z87.11 Personal history of peptic ulcer disease
CPT/HCPCS: 36600; 76770; 82570; 82607; 82805; 83735; 83930; 83935; 84100; 84132; 84156; 84295; 84300; 84443; 84540; 87040; 87045; 87205; 87324; 87449; 89055; 93005; 97161; 97165; 97535; 99291; G0480; J2405; J2543; J3411; J3475; J3480; J3490; J7030; J7060

== ENCOUNTER 2019-07-17 22:11 | Inpatient (IN) | payer MEDICAID ==
[~2019-07-17] VITALS: Ht 180.3 cm; Wt 65.7 kg
[~2019-07-17 22:11] MED LIST changes: +AMOX1TAB16 PO; +MAAL30 PO; +METR500 PO; +NACL1 PO; -PANT40TA25 PO
[2019-07-18 01:38] LABS: BASOPHILS % (AUTO) 0.5 % (0.0-2.0); EOSINOPHILS % (AUTO) 0.2 % (1.0-6.0); HEMATOCRIT 36.1 % (41-53); HEMOGLOBIN 11.6 g/dL (13.5-17.5); LYMPHOCYTES # (AUTO) 1.1 K/uL (1.0-4.8); LYMPHOCYTES % (AUTO) 16.9 % (22.0-44.0); MEAN CORPUSCULAR HEMOGLOBIN 27.4 pg (26.0-34.0); MEAN CORPUSCULAR VOLUME 85 fL (80-100); MONOCYTES # (AUTO) 1.3 K/uL (0.1-1.0); MONOCYTES % (AUTO) 20.4 % (2.0-9.0); NEUTROPHILS # (AUTO) 3.9 K/uL (1.8-7.7); PLATELET COUNT (AUTO) 276 K/uL (150-450); RED BLOOD CELL COUNT(AUTO) 4.23 MIL/uL (4.50-5.90); RED CELL DISTRIBUTION WIDTH 18.2 % (11.5-14.5)
[2019-07-18] MEDS ORDERED: ONDANSETRON HCL 4 MG TABLET PO ONE (01:45)
[2019-07-18 01:52] LABS: ALANINE AMINOTRANSFERASE 15 U/L (12-78); ALBUMIN 3.4 g/dL (3.4-5.0); ALKALINE PHOSPHATASE 97 U/L (46-116); ASPARTATE AMINOTRANSFERASE 26 U/L (15-37); CALCIUM, TOTAL 9.7 mg/dL (8.8-10.5); CHLORIDE 79 mmol/L (98-107); CREATININE 1.68 mg/dL (0.60-1.30); GLOMERULAR FILTR. RATE CALC 42 mL/min (>60); GLUCOSE,RANDOM 137 mg/dL (70-110); SODIUM SERUM 139 mmol/L (136-145); TOTAL PROTEIN, SERUM 7.1 g/dL (6.4-8.2); UREA NITROGEN, BLOOD 10 mg/dL (7-18)
[2019-07-18 02:08] LABS: ANION GAP 0 mmol/L (8-16)
[2019-07-18 02:09] LABS: CARBON DIOXIDE 60 mmol/L (22-29); POTASSIUM 2.4 mmol/L (3.5-5.1)
[2019-07-18] MEDS ORDERED: POTASSIUM CHLORIDE 20 MEQ ER TABLET PO ONE (02:15)
[2019-07-18] MEDS ORDERED: SODIUM CHLORIDE 0.9% 250 ML IV ONE (02:23)
[2019-07-18] MEDS: POTASSIUM CHL 10 MEQ/WATER 50 ML IV SCH ×2 (02:24→03:30)
[2019-07-18 03:33] LABS: APPEARANCE,URINE CLEAR (CLEAR); BILIRUBIN,URINE NEGATIVE (NEGATIVE); GLUCOSE, URINE (UA) NEGATIVE (NEGATIVE); KETONES,URINE NEGATIVE (NEGATIVE); LEUKOCYTE ESTERASE ,URINE NEGATIVE (NEGATIVE); NITRATE,URINE NEGATIVE (NEGATIVE); OCCULT BLOOD,URINE NEGATIVE (NEGATIVE); PH,URINE 8.5 (5.0-8.0); PROTEIN,URINE SEE CONFIRM (NEGATIVE); UROBILINOGEN,URINE 0.2 mg/dL (<=1.0)
[2019-07-18 03:38] LABS: SULFOSALICYLIC ACID,URINE 1+ (Negative)
[2019-07-18 03:39] LABS: BACTERIA,URINE None Seen /HPF (None Seen); RBC,URINE None Seen /HPF (0-2); SQUAMOUS EPITHELIAL CELL,UR Rare /LPF (None Seen); WBC,URINE 0-2 /HPF (0-5)
[2019-07-18] MEDS ORDERED: 0.9% SODIUM CHLORIDE 10 ML SYRINGE IVP PRN ×2 (05:00→07:30)
[2019-07-18] MEDS ORDERED: ONDANSETRON HCL 4 MG/2 ML VIAL IVP PRN (05:00)
[2019-07-18] MEDS ORDERED: ACETAMINOPHEN 325 MG TABLET PO PRN (07:30)
[2019-07-18] MEDS ORDERED: MAGNESIUM SULFATE 4 GM/WATER 100 ML IV PRN (07:30)
[2019-07-18] MEDS ORDERED: ZOLPIDEM TARTRATE 5 MG TABLET PO PRN (07:30)
[2019-07-18] MEDS: PANTOPRAZOLE SODIUM 40 MG DR TABLET PO SCH (07:47)
[2019-07-18] MEDS: HEPARIN SODIUM,PORCINE 5,000 UNITS/ML VIAL SQ SCH ×3 (07:47→23:58)
[2019-07-18] MEDS: SODIUM CHLORIDE 1 GM TABLET PO SCH (07:47)
[2019-07-18] MEDS: ASPIRIN 81 MG CHEWABLE TABLET PO SCH (07:47)
[2019-07-18] MEDS: FOLIC ACID 1 MG TABLET PO SCH (07:48)
[2019-07-18 08:11] LABS: ALBUMIN 3.2 g/dL (3.4-5.0)
[2019-07-18 08:17] LABS: POTASSIUM 2.1 mmol/L (3.5-5.1)
[2019-07-18] MEDS ORDERED: SODIUM CHLORIDE 0.9% 1,000 ML ONE (08:31)
[2019-07-18 08:34] LABS: MAGNESIUM 1.6 mg/dL (1.80-2.40)
[2019-07-18] MEDS: POTASSIUM CHL 10 MEQ/WATER 50 ML IV PRN ×8 (08:35→22:20)
[2019-07-18] MEDS ORDERED: OMEPRAZOLE 20 MG CAPSULE PO SCH (09:00)
[2019-07-18] MEDS: MAGNESIUM SULFATE 2 GM/WATER 50 ML IV PRN (10:17)
[2019-07-18] MEDS: ONDANSETRON HCL 4 MG/2 ML VIAL IVP PRN (10:27)
[2019-07-18 12:05] VITALS: BP 103/69
[2019-07-18 16:24] VITALS: BP 115/70
[2019-07-18 20:25] VITALS: BP 122/58
[2019-07-18 23:58] VITALS: BP 101/54
[2019-07-19] MEDS: POTASSIUM CHLORIDE 20 MEQ ER TABLET PO PRN ×2 (02:31→16:06)
[2019-07-19 04:15] VITALS: BP 123/50
[2019-07-19 07:41] LABS: BASOPHILS % (AUTO) 0.6 % (0.0-2.0); HEMATOCRIT 31.2 % (41-53); HEMOGLOBIN 10.5 g/dL (13.5-17.5); LYMPHOCYTES # (AUTO) 1.9 K/uL (1.0-4.8); LYMPHOCYTES % (AUTO) 27.3 % (22.0-44.0); MEAN CORPUSCULAR HEMOGLOBIN 28.5 pg (26.0-34.0); MEAN CORPUSCULAR HGB CONC 33.5 G/dL (31.0-37.0); MEAN CORPUSCULAR VOLUME 85 fL (80-100); MONOCYTES # (AUTO) 0.9 K/uL (0.1-1.0); MONOCYTES % (AUTO) 12.6 % (2.0-9.0); NEUTROPHILS # (AUTO) 3.6 K/uL (1.8-7.7); NEUTROPHILS % (AUTO) 51.5 % (40.0-70.0); PLATELET COUNT (AUTO) 235 K/uL (150-450); RED BLOOD CELL COUNT(AUTO) 3.68 MIL/uL (4.50-5.90); RED CELL DISTRIBUTION WIDTH 17.7 % (11.5-14.5)
[2019-07-19 08:14] LABS: ALBUMIN 2.6 g/dL (3.4-5.0); BILIRUBIN,TOTAL 0.4 mg/dL (0.1-1.0); CALCIUM, TOTAL 8.6 mg/dL (8.8-10.5); CREATININE 1.29 mg/dL (0.60-1.30); MAGNESIUM 1.6 mg/dL (1.80-2.40); POTASSIUM 3.5 mmol/L (3.5-5.1); TOTAL PROTEIN, SERUM 5.8 g/dL (6.4-8.2)
[2019-07-19 08:33] VITALS: BP 124/76
[2019-07-19] MEDS: ASPIRIN 81 MG CHEWABLE TABLET PO SCH (09:01)
[2019-07-19] MEDS: HEPARIN SODIUM,PORCINE 5,000 UNITS/ML VIAL SQ SCH ×3 (09:01→23:39)
[2019-07-19] MEDS: SODIUM CHLORIDE 1 GM TABLET PO SCH (09:01)
[2019-07-19] MEDS: FOLIC ACID 1 MG TABLET PO SCH (09:01)
[2019-07-19] MEDS: PANTOPRAZOLE SODIUM 40 MG DR TABLET PO SCH (09:01)
[2019-07-19 11:59] VITALS: BP 111/58
[2019-07-19 16:19] VITALS: BP 127/80
[2019-07-19] MEDS: MAGNESIUM SULFATE 2 GM/WATER 50 ML IV PRN (16:46)
[2019-07-19 20:50] VITALS: BP 108/66
[2019-07-20 00:50] VITALS: BP 135/68
[2019-07-20 05:01] VITALS: BP 134/73
[2019-07-20 07:21] VITALS: BP 131/70
[2019-07-20 07:32] LABS: ALANINE AMINOTRANSFERASE 14 U/L (12-78); ALBUMIN 2.6 g/dL (3.4-5.0); ALKALINE PHOSPHATASE 71 U/L (46-116); ANION GAP 5 mmol/L (8-16); ASPARTATE AMINOTRANSFERASE 15 U/L (15-37); BILIRUBIN,TOTAL 0.3 mg/dL (0.1-1.0); CARBON DIOXIDE 34 mmol/L (22-29); CHLORIDE 93 mmol/L (98-107); CREATININE 1.04 mg/dL (0.60-1.30); GLOMERULAR FILTR. RATE CALC > 60 mL/min (>60); GLUCOSE,RANDOM 85 mg/dL (70-110); POTASSIUM 4.4 mmol/L (3.5-5.1); SODIUM SERUM 132 mmol/L (136-145); UREA NITROGEN, BLOOD 13 mg/dL (7-18)
[2019-07-20] MEDS: FOLIC ACID 1 MG TABLET PO SCH (08:14)
[2019-07-20] MEDS: PANTOPRAZOLE SODIUM 40 MG DR TABLET PO SCH (08:14)
[2019-07-20] MEDS: ASPIRIN 81 MG CHEWABLE TABLET PO SCH (08:14)
[2019-07-20] MEDS: HEPARIN SODIUM,PORCINE 5,000 UNITS/ML VIAL SQ SCH ×3 (08:15→23:32)
[2019-07-20] MEDS: SODIUM CHLORIDE 1 GM TABLET PO SCH (08:15)
[2019-07-20 11:27] VITALS: BP 148/80
[2019-07-20] MEDS: MAGNESIUM OXIDE 400 MG TABLET PO PRN ×3 (11:58→23:32)
[2019-07-20] MEDS: GABAPENTIN 100 MG CAPSULE PO SCH ×2 (13:53→20:15)
[2019-07-20 15:14] VITALS: BP 136/74
[2019-07-20 19:55] VITALS: BP 130/75
[2019-07-21] VITALS (7 sets, daily range): BP systolic 121–147; BP diastolic 71–96
[2019-07-21 06:59] LABS: BASOPHILS % (AUTO) 0.8 % (0.0-2.0); HEMATOCRIT 34.8 % (41-53); HEMOGLOBIN 11.4 g/dL (13.5-17.5); LYMPHOCYTES # (AUTO) 1.7 K/uL (1.0-4.8); LYMPHOCYTES % (AUTO) 22.5 % (22.0-44.0); MEAN CORPUSCULAR HEMOGLOBIN 27.9 pg (26.0-34.0); MEAN CORPUSCULAR HGB CONC 32.8 G/dL (31.0-37.0); MEAN CORPUSCULAR VOLUME 85 fL (80-100); MONOCYTES # (AUTO) 0.7 K/uL (0.1-1.0); NEUTROPHILS # (AUTO) 3.3 K/uL (1.8-7.7); PLATELET COUNT (AUTO) 248 K/uL (150-450); RED CELL DISTRIBUTION WIDTH 18.1 % (11.5-14.5)
[2019-07-21 07:03] LABS: EOSINOPHILS % (AUTO) 12.5 % (1.0-6.0); NEUTROPHILS % (AUTO) 53.5 % (40.0-70.0)
[2019-07-21 07:07] LABS: ANION GAP 2 mmol/L (8-16); CALCIUM, TOTAL 9.2 mg/dL (8.8-10.5); CARBON DIOXIDE 34 mmol/L (22-29); CHLORIDE 96 mmol/L (98-107); CREATININE 0.91 mg/dL (0.60-1.30); GLOMERULAR FILTR. RATE CALC > 60 mL/min (>60); GLUCOSE,RANDOM 85 mg/dL (70-110); POTASSIUM 4.8 mmol/L (3.5-5.1); SODIUM SERUM 132 mmol/L (136-145); UREA NITROGEN, BLOOD 17 mg/dL (7-18)
[2019-07-21] MEDS: SODIUM CHLORIDE 1 GM TABLET PO SCH (08:32)
[2019-07-21] MEDS: HEPARIN SODIUM,PORCINE 5,000 UNITS/ML VIAL SQ SCH ×2 (08:32→15:51)
[2019-07-21] MEDS: FOLIC ACID 1 MG TABLET PO SCH (08:32)
[2019-07-21] MEDS: GABAPENTIN 100 MG CAPSULE PO SCH ×2 (08:32→20:23)
[2019-07-21] MEDS: ASPIRIN 81 MG CHEWABLE TABLET PO SCH (08:33)
[2019-07-21] MEDS: PANTOPRAZOLE SODIUM 40 MG DR TABLET PO SCH (08:33)
[2019-07-21] MEDS: MAGNESIUM SULFATE 2 GM/WATER 50 ML IV PRN (10:10)
[2019-07-21] MEDS ORDERED: MAGOX PO (11:59)
[2019-07-21] MEDS ORDERED: GABA-529 PO (11:59)
[2019-07-21] MEDS ORDERED: FOLI0.4T14 PO (11:59)
[2019-07-21] MEDS ORDERED: FOLI1 PO (12:03)
[2019-07-21] MEDS: ONDANSETRON HCL 4 MG/2 ML VIAL IVP PRN ×2 (15:54→22:21)
[2019-07-21] MEDS: MAG HYDROX/AL HYDROX/SIMETH 30 ML SUSP UDCUP PO PRN (20:19)
[2019-07-22] MEDS: HEPARIN SODIUM,PORCINE 5,000 UNITS/ML VIAL SQ SCH ×2 (00:08→08:41)
[2019-07-22 05:00] VITALS: BP 125/74
[2019-07-22] MEDS: MAG HYDROX/AL HYDROX/SIMETH 30 ML SUSP UDCUP PO PRN ×2 (06:07→13:23)
[2019-07-22 07:07] LABS: BASOPHILS % (AUTO) 0.7 % (0.0-2.0); EOSINOPHILS % (AUTO) 14.8 % (1.0-6.0); HEMOGLOBIN 10.7 g/dL (13.5-17.5); LYMPHOCYTES # (AUTO) 1.5 K/uL (1.0-4.8); LYMPHOCYTES % (AUTO) 20.3 % (22.0-44.0); MEAN CORPUSCULAR HEMOGLOBIN 28.1 pg (26.0-34.0); MEAN CORPUSCULAR HGB CONC 33.4 G/dL (31.0-37.0); MEAN CORPUSCULAR VOLUME 84 fL (80-100); MONOCYTES # (AUTO) 0.9 K/uL (0.1-1.0); MONOCYTES % (AUTO) 11.8 % (2.0-9.0); NEUTROPHILS # (AUTO) 3.9 K/uL (1.8-7.7); NEUTROPHILS % (AUTO) 52.4 % (40.0-70.0); PLATELET COUNT (AUTO) 245 K/uL (150-450); RED CELL DISTRIBUTION WIDTH 17.8 % (11.5-14.5)
[2019-07-22 07:16] LABS: ANION GAP 7 mmol/L (8-16); CALCIUM, TOTAL 8.7 mg/dL (8.8-10.5); CARBON DIOXIDE 35 mmol/L (22-29); CHLORIDE 91 mmol/L (98-107); CREATININE 1.06 mg/dL (0.60-1.30); GLOMERULAR FILTR. RATE CALC > 60 mL/min (>60); GLUCOSE,RANDOM 107 mg/dL (70-110); POTASSIUM 3.9 mmol/L (3.5-5.1); SODIUM SERUM 133 mmol/L (136-145); UREA NITROGEN, BLOOD 22 mg/dL (7-18)
[2019-07-22 08:38] VITALS: BP 125/76
[2019-07-22] MEDS: FOLIC ACID 1 MG TABLET PO SCH (08:41)
[2019-07-22] MEDS: SODIUM CHLORIDE 1 GM TABLET PO SCH (08:41)
[2019-07-22] MEDS: GABAPENTIN 100 MG CAPSULE PO SCH (08:41)
[2019-07-22] MEDS: PANTOPRAZOLE SODIUM 40 MG DR TABLET PO SCH (08:41)
[2019-07-22] MEDS: ASPIRIN 81 MG CHEWABLE TABLET PO SCH (08:42)
[2019-07-22 11:13] VITALS: BP 145/86
== END 2019-07-22 15:15 | disposition home or self-care (01) | DRG 425 ==
LOC: EMS 22:14 → 5N 07-18 10:36
PROVIDERS: ADMIT Internal Medicine; ATTEND Internal Medicine
DX: E87.6 Hypokalemia (principal); E44.1 Mild protein-calorie malnutrition; K25.9 Gastric ulcer, unspecified as acute or chronic, without hemorrhage or perforation; F10.20 Alcohol dependence, uncomplicated; F17.210 Nicotine dependence, cigarettes, uncomplicated; I10 Essential (primary) hypertension; Z59.0 Homelessness; Z68.20 Body mass index [BMI] 20.0-20.9, adult; Z88.6 Allergy status to analgesic agent; Z88.8 Allergy status to other drugs, medicaments and biological substances; Z79.899 Other long term (current) drug therapy; Z87.81 Personal history of (healed) traumatic fracture
CPT/HCPCS: 71250; 72170; 73552; 83735; 84132; 93005; G0480; J1644; J2405; J3475; J3480; J7030; J7050